=== PATIENT | female | born 1985 | race Caucasian/White ===

== ENCOUNTER 2019-12-26 23:39 | Emergency (ER) | payer MEDICAID ==
[~2019-12-26] VITALS: Ht 162.6 cm; Wt 62.5 kg
[2019-12-27] VITALS: BP 125/88
[2019-12-27] MEDS ORDERED: CLIN300C8 PO (00:21)
--- NOTE | 2019-12-27 00:21 | PHYS DOC ---
General Adult EDM: Chief Complaint: DENTAL PROBLEM HPI: HPI: 34-year-old female who comes in with right upper tooth pain. Says about 3 months ago she had been into something and broke part of the tooth off. Did not visit a dentist since then because it has not really bothered her. About 4 days ago she was picking at it with her tongue nose a little chip came off. States over the past 3 days she has had worsening upper jaw pain. No drainage or fluctuance. Review of Systems: Review of Systems: Constitutional: Denies fever or chills Eyes: Denies change in visual acuity HENT: Denies nasal congestion or sore throat complaining of right upper dental pain Respiratory: Denies cough or shortness of breath Cardiovascular: Denies chest pain or edema GI: Denies abdominal pain, nausea, vomiting, bloody stools or diarrhea : Denies dysuria Musculoskeletal: Denies back pain or joint pain Integument: Denies rash Neurologic: Denies headache, focal weakness or sensory changes Endocrine: Denies polyuria or polydipsia Lymphatic: Denies swollen glands Psychiatric: Denies depression or anxiety Heart Score: Risk Factors: Risk Factors: DM, Current or recent (<one month) smoker, HTN, HLP, family history of CAD, obesity. Risk Scores: Score 0 - 3: 2.5% MACE over next 6 weeks - Discharge Home Score 4 - 6: 20.3% MACE over next 6 weeks - Admit for Clinical Observation Score 7 - 10: 72.7% MACE over next 6 weeks - Early Invasive Strategies Allergies: Allergies: Allergies Coded Allergies Type Severity Reaction Last Updated Verified Penicillins Allergy Unknown 12/27/19 Yes Physical Exam: PE: Constitutional: Well developed, well nourished, no acute distress, non-toxic appearance. [] HENT: Normocephalic, atraumatic, bilateral external ears normal, oropharynx moist, no oral exudates, nose normal. [] Few scattered dental caries, broken right upper molar. Mild erythema of gingiva without fluctuance or drainage Eyes: PERRLA, EOMI, conjunctiva normal, no discharge. [] Neck: Normal range of motion, no tenderness, supple, no stridor. [] Cardiovascular:Heart rate regular rhythm, no murmur [] Lungs & Thorax: Bilateral breath sounds clear to auscultation [] Abdomen: Bowel sounds normal, soft, no tenderness, no masses, no pulsatile masses. [] Skin: Warm, dry, no erythema, no rash. [] Back: No tenderness, no CVA tenderness. [] Extremities: No tenderness, no cyanosis, no clubbing, ROM intact, no edema. [] Neurologic: Alert and oriented X 3, normal motor function, normal sensory function, no focal deficits noted. [] Psychologic: Affect normal, judgement normal, mood normal. [] EKG: EKG: [] Radiology/Procedures: Radiology/Procedures: [] Course & Med Decision Making: Course & Med Decision Making Pertinent Labs and Imaging studies reviewed. (See chart for details) [] Dragon Disclaimer: Dragon Disclaimer: This electronic medical record was generated, in whole or in part, using a voice recognition dictation system. Departure Departure: Impression: Primary Impression: Dental infection Disposition: 01 DC HOME SELF CARE/HOMELESS Condition: STABLE Referrals: PCP,NO (PCP) Additional Instructions: Call someone from dental list provided tomorrow morning Scripts Clindamycin Hcl (CLINDAMYCIN HCL) 300 Mg Capsule 300 MG PO Q6HRS for dental infection for 7 Days, #28 CAP 0 Refills Prov: LACEY GAMBINO MD 12/27/19 LACEY GAMBINO MD Dec 27, 2019 00:21
[2019-12-27] MEDS ORDERED: CLINDAMYCIN HCL 150 MG CAPSULE PO ONE (01:00)
== END 2019-12-27 00:25 | disposition home or self-care (01) ==
LOC: ER 23:39
DX: K04.7 Periapical abscess without sinus (principal); Z88.0 Allergy status to penicillin
CPT/HCPCS: 99283

== ENCOUNTER 2020-03-18 22:14 | Emergency (ER) | payer MEDICAID ==
[~2020-03-18] VITALS: Ht 162.6 cm; Wt 66.3 kg
[~2020-03-18 22:14] MED LIST: CLIN300C9 PO
--- NOTE | 2020-03-18 22:20 | PHYS DOC ---
Past History Past Medical History: No Pertinent History Past Medical History Chronic Dental caries and pain Past Surgical History: Hysterectomy Alcohol Use: Occasionally General Adult HPI: HPI: '.." I ve been here ..before..I went to local dentist..they wanted $600 dollars to pull the tooth..and I could not do the payment plan.....it still hurting.. " Patient is a 34 year old female who presents with above hx and complaints of dental pain. Pt. seen In September and Dec for dental pain. Pt. localizes the pain primarily in teeth #1 and 2.. Tooth 1 is rotted into the gum and fracture. Patient complained of pain in this tooth previously. Patient did not do dental follow-up because payment plan was too steep and overall cost was $600. Patient presents tonight with similar complaints as previous ED visits. Patient does smoke. No recent travel. No specific ill contacts. No history immunosuppression. Review of Systems: Review of Systems: Constitutional: Denies fever or chills Eyes: Denies change in visual acuity HENT: Denies nasal congestion or sore throat. Complaints of dental pain and dental infection Respiratory: Denies cough or shortness of breath Cardiovascular: Denies chest pain or edema GI: Denies abdominal pain, nausea, vomiting, bloody stools or diarrhea : Denies dysuria Musculoskeletal: Denies back pain or joint pain Integument: Denies rash Neurologic: Denies headache, focal weakness or sensory changes Endocrine: Denies polyuria or polydipsia Lymphatic: Denies swollen glands Psychiatric: Denies depression or anxiety Family History: Family History: Noncontributory to presentation Current Medications: Current Meds: See nursing for home meds Allergies: Allergies: Allergies Coded Allergies Type Severity Reaction Last Updated Verified Penicillins Allergy Intermediate 12/27/19 Yes Physical Exam: PE: Constitutional: Moderate acute distress, non-toxic appearance. [] HENT: Normocephalic, atraumatic, bilateral external ears normal, oropharynx moist, no oral exudates, nose normal. Multiple areas of dental decay. Offending area is teeth 1 and 2. 1 is fractured into the gum from decay. There is surrounding gingivitis. No trismus. There is mild adenopathy at angle of mandible . Eyes: PERRLA, EOMI, conjunctiva normal, no discharge. [] Neck: Normal range of motion, no tenderness, supple, no stridor. [] Cardiovascular:Heart rate regular rhythm, no murmur [] Lungs & Thorax: Bilateral breath sounds equal apex with few scattered wheezes auscultation [] Abdomen: Bowel sounds normal, soft, no tenderness, no masses, no pulsatile masses. Old surgery scar Skin: Warm, dry, no erythema, no rash. [] Back: No tenderness, no CVA tenderness. [] Extremities: No tenderness, no cyanosis, no clubbing, ROM intact, no edema. [] Neurologic: Alert and oriented X 3, normal motor function, normal sensory function, no focal deficits noted. [] Psychologic: Affect anxious , judgement normal, mood normal. [] EKG: EKG: [] Radiology/Procedures: Radiology/Procedures: [] Heart Score: Risk Factors: Risk Factors: DM, Current or recent (<one month) smoker, HTN, HLP, family history of CAD, obesity. Risk Scores: Score 0 - 3: 2.5% MACE over next 6 weeks - Discharge Home Score 4 - 6: 20.3% MACE over next 6 weeks - Admit for Clinical Observation Score 7 - 10: 72.7% MACE over next 6 weeks - Early Invasive Strategies Course & Med Decision Making: Course & Med Decision Making Pertinent Labs and Imaging studies reviewed. (See chart for details) Patient to follow-up with oral surgeon. [place] [facility] [place] [facility] [place] [facility] [place] [facility] [place] if unable to obtain a surgeon locally to extract teeth 1 and 2. Patient is started again on clindamycin 300 mg 4 times a day. Patient take Tylenol and ibuprofen for pain. Patient encouraged not to smoke. Patient return if any concerns. Impression: 1. Dental pain 2. Dental caries 3. Gingivitis 4. Dental abscess [] Dragon Disclaimer: Dragon Disclaimer: This electronic medical record was generated, in whole or in part, using a voice recognition dictation system. Departure Departure: Referrals: PCP,NO (PCP) Scripts Clindamycin Hcl (CLINDAMYCIN HCL) 300 Mg Capsule 300 MG PO QIDPRN for dental infection for 14 Days, CAP Prov: CAREY STEPHENS MD 03/18/20 Dragdaniel Disclaimer This chart was dictated in whole or in part using Voice Recognition software in a busy, high-work load, and often noisy Emergency Department environment. It may contain unintended and wholly unrecognized errors or omissions. Dragon Disclaimer This chart was dictated in whole or in part using Voice Recognition software in a busy, high-work load, and often noisy Emergency Department environment. It may contain unintended and wholly unrecognized errors or omissions. CAREY STEPHENS MD Mar 18, 2020 22:20
[2020-03-18 22:28] VITALS: BP 119/80
[2020-03-18] MEDS ORDERED: CLIN300C9 PO (22:59)
[2020-03-18] MEDS ORDERED: KETOROLAC 60 MG/2 ML VIAL. IM ONE (23:30)
[2020-03-18] MEDS ORDERED: CLINDAMYCIN HCL 150 MG CAPSULE PO ONE (23:30)
== END 2020-03-18 23:27 | disposition home or self-care (01) ==
LOC: ER 22:14
DX: K02.9 Dental caries, unspecified (principal); K05.10 Chronic gingivitis, plaque induced; K04.7 Periapical abscess without sinus; Z88.0 Allergy status to penicillin
CPT/HCPCS: 96372; 99283; J1885

== ENCOUNTER 2020-08-01 18:32 | Emergency (ER) | payer MEDICAID, OTHER ==
[~2020-08-01] VITALS: Ht 162.6 cm; Wt 65.8 kg
[2020-08-01] MEDS ORDERED: IV NORMAL SALINE 1,000ML 1,000 ML IV ONE (19:00)
[2020-08-01] MEDS ORDERED: ONDANSETRON PF 4 MG/2 ML VIAL. IVP ONE (19:00)
--- NOTE | 2020-08-01 19:00 | PHYS DOC ---
Past History Past Medical History: Other Additional Past Medical Histor: pyleonephritis; PTSD Past Surgical History: Appendectomy, Cholecystectomy, , Hysterectomy Additional Past Surgical Histo: bariatric surgery Alcohol Use: None General Adult EDM: Chief Complaint: FLANK PAIN HPI: HPI: 34-year-old female presents with right abdominal pain. The patient has been having intermittent pain for last couple of days. It was worse today. She describes it as a cramping sensation in the flank. Moderate in intensity. She is also had a short stabbing pain in the right lower abdomen. She has not had this pain before. Patient does have a history of UTIs including pyelonephritis. No history of kidney stones. She has had her gallbladder, appendix, and uterus removed. Her hysterectomy was due to excessive bleeding and anemia. She believes her ovaries were spared. She denies fever or chills. Review of Systems: Review of Systems: Constitutional: Denies fever or chills Eyes: Denies change in visual acuity HENT: Denies nasal congestion or sore throat Respiratory: Denies cough or shortness of breath Cardiovascular: Denies chest pain or edema GI: Right-sided abdominal pain. denies nausea, vomiting, bloody stools or diarrhea : Dysuria Musculoskeletal: Denies back pain or joint pain Integument: Denies rash Neurologic: Denies headache, focal weakness or sensory changes Endocrine: Denies polyuria or polydipsia Lymphatic: Denies swollen glands Psychiatric: Denies depression or anxiety Allergies: Allergies: Allergies Coded Allergies Type Severity Reaction Last Updated Verified Penicillins Allergy Intermediate 08/01/20 Yes Physical Exam: PE: Constitutional: Well developed, well nourished, no acute distress, non-toxic appearance. [] HENT: Normocephalic, atraumatic, bilateral external ears normal, oropharynx moist, no oral exudates, nose normal. [] Eyes: PERRLA, EOMI, conjunctiva normal, no discharge. [] Neck: Normal range of motion, no tenderness, supple, no stridor. [] Cardiovascular: Heart rate regular rhythm, no murmur [] Lungs & Thorax: Bilateral breath sounds clear to auscultation [] Abdomen: Bowel sounds normal, soft, right-sided abdominal tenderness, no masses, no pulsatile masses. [] Skin: Warm, dry, no erythema, no rash. [] Back: No tenderness, no CVA tenderness. [] Extremities: No tenderness, no cyanosis, no clubbing, ROM intact, no edema. [] Neurologic: Alert and oriented X 3, normal motor function, normal sensory function, no focal deficits noted. [] Psychologic: Affect normal, judgement normal, mood normal. [] Current Patient Data: Vital Signs: Vital Signs Date Time Temp Pulse Resp B/P (MAP) Pulse Ox O2 Delivery O2 Flow Rate FiO2 08/01/20 18:42 98.2 74 18 142/99 (113) 98 Room Air EKG: EKG: [] Radiology/Procedures: Radiology/Procedures: [] Impressions: EXAMINATION: CT ABDOMEN+PELVIS WO (CT ABDOMEN/PELVIS WITHOUT IV CONTRAST) CLINICAL HISTORY: Right lower quadrant pain TECHNIQUE: Non-IV contrast imaging of the abdomen and pelvis was performed using standard technique, scanning from just above the dome of the diaphragm to the symphysis pubis. Unenhanced imaging is limited for the evaluation of some intra-abdominal and pelvic pathology. CT Dose Reduction Employed: One or more of the following individualized dose reduction techniques were utilized for this examination: 1. Automated exposure control 2. Adjustment of the mA and/or kV according to patient size 3. Use of iterative reconstruction technique. COMPARISON: None FINDINGS: Minimal subsegmental atelectasis in the right middle lobe. Cholecystectomy. Findings suggestive of normal variant Devin lobe in the liver. Pancreas, spleen and adrenal glands unremarkable. Asymmetrically small right kidney with a few punctate cortical densities and subcentimeter hypodensity in the upper pole which is too small adequately characterize but likely benign. Minimally filled urinary bladder suboptimally evaluated. Uterus poorly visualiz ed and likely surgically absent. 3.4 cm right adnexal cyst. No dilated bowel. Appendix not definitively visualized on limited evaluation with lack of intravenous and/or oral contrast. Multiple prominent but nonenlarged mesenteric lymph nodes in the right lower quadrant could reflect mesenteric adenitis, but occult appendicitis is not completely excluded. 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 No abdominal aortic or iliac artery aneurysm. No evidence of acute osseous abnormality. IMPRESSION: Appendix not definitively visualized on limited evaluation as described. Multiple prominent but nonenlarged mesenteric lymph nodes in the right lower quadrant, nonspecific and possibly related to mesenteric adenitis but occult appendicitis is not excluded. 3.4 cm right adnexal cyst. Electronically signed by: Ilya Soler DO (08/01/2020 7:41 PM) [facility] DICTATED AND SIGNED BY: ILYA SOLER DO DATE: 08/01/201925 CC: MARIA INES CAMACHO DO; PCP,NO ~MTH0 0 Exam: Ultrasound pelvis Indication: Right adnexal cysts Technique: Real-time grayscale and color Doppler images of the pelvis were obtained by the department furnace erector. Comparisons: CT same day FINDINGS: Uterus is absent. Right ovary measures 4.1 x 4.2 x 3.5 cm. Within the right ovary there is a 3.4 cm hypoechoic heterogenous cystic structure. Left ovary measures 3.9 x 1.9 x 1.8 cm. Vascular flow identified in the ovaries bilaterally. No free fluid identified at the pelvis. IMPRESSION: Findings likely likely related to a hemorrhagic cyst in the right ovary. No evidence for torsion. Electronically signed by: Cayetano Barrow MD (08/01/2020 10:06 PM) [facility] DICTATED AND SIGNED BY: CAYETANO BARROW MD DATE: 08/01/202203 CC: MARIA INES CAMACHO DO; PCP,NO ~MTH0 0 Heart Score: C/O Chest Pain: N/A Risk Factors: Risk Factors: DM, Current or recent (<one month) smoker, HTN, HLP, family history of CAD, obesity. Risk Scores: Score 0 - 3: 2.5% MACE over next 6 weeks - Discharge Home Score 4 - 6: 20.3% MACE over next 6 weeks - Admit for Clinical Observation Score 7 - 10: 72.7% MACE over next 6 weeks - Early Invasive Strategies Course & Med Decision Making: Course & Med Decision Making Pertinent Labs and Imaging studies reviewed. (See chart for details) The patient CT scan shows a right adnexal cyst and some adenitis. I will order an ultrasound to rule out ovarian torsion as she believes she still has her ovaries. Ultrasound shows possible hemorrhagic cyst but no torsion. Patient has urinary tract infection. I will treat her with 750 of levofloxacin in the ED, but discharge her with 5 days of Macrobid. She has had resistance in the past and given her pain I want cover her more broadly with levofloxacin. I do not have high suspicion for pyelonephritis however so I think Macrobid will be sufficient. She is stable for discharge at this time. [] Jacques Disclaimer: Dragdaniel Disclaimer: This electronic medical record was generated, in whole or in part, using a voice recognition dictation system. Departure Departure: Impression: Primary Impression: Urinary tract infection Qualified Codes: N30.01 - Acute cystitis with hematuria Disposition: HOME / SELF CARE / HOMELESS Condition: STABLE Referrals: PCP,NO (PCP) Patient Instructions: Urinary Tract Infection, [id number] Scripts Nitrofurantoin Monohyd/M-Cryst (MACROBID 100 MG CAPSULE) 100 Mg Capsule 1 CAP PO BID for UTI for 5 Days, #10 CAP 0 Refills Prov: MARIA INES CAMACHO DO 08/01/20 MARIA INES CAMACHO DO August 01, 2020 19:00
[2020-08-01 19:44] LABS: BASO % 1 % (0-3); EOS # 0.1 x10^3/uL (0.0-0.7); EOS % 2 % (0-3); HEMATOCRIT 38.2 % (36.0-47.0); HEMOGLOBIN 12.7 g/dL (12.0-15.5); LYMPH # 1.6 x10^3/uL (1.0-4.8); LYMPH % 27 % (24-48); MEAN CORPUSCULAR HEMOGLOBIN 29 pg (25-35); MEAN CORPUSCULAR HGB CONC 33 g/dL (31-37); MEAN CORPUSCULAR VOLUME 88 fL (79-100); MONO # 0.4 x10^3/uL (0.0-1.1); MONO % 6 % (0-9); NEUT # 3.7 x10^3uL (1.8-7.7); NEUT % 64 % (31-73); PLATELET COUNT 275 x10^3/uL (140-400); RED BLOOD COUNT 4.35 x10^6/uL (3.50-5.40); RED CELL DISTRIBUTION WIDTH 13.3 % (11.5-14.5); WHITE BLOOD COUNT 5.8 x10^3/uL (4.0-11.0)
--- NOTE | 2020-08-01 19:44 | RAD ---
EXAMINATION: CT ABDOMEN+PELVIS WO (CT ABDOMEN/PELVIS WITHOUT IV CONTRAST) CLINICAL HISTORY: Right lower quadrant pain TECHNIQUE: Non-IV contrast imaging of the abdomen and pelvis was performed using standard technique, scanning from just above the dome of the diaphragm to the symphysis pubis. Unenhanced imaging is gaona ited for the evaluation of some intra-abdominal and pelvic pathology. CT Dose Reduction Employed: One or more of the following individualized dose reduction techniques wer e utilized for this examination: 1. Automated exposure control 2. Adjustment of the mA and/or kV ac cording to patient size 3. Use of iterative reconstruction technique. COMPARISON: None FINDINGS: Minimal subsegmental atelectasis in the right middle lobe. Cholecystectomy. Findings suggestive of normal variant Devin lobe in the liver. Pancreas, spleen and adrenal glands unremarkable. Asymmetrically small right kidney with a few punctate cortical densities and subcentimeter hypodensit y in the upper pole which is too small adequately characterize but likely benign. Minimally filled urinary bladder suboptimally evaluated. Uterus poorly visualized and likely surgical ly absent. 3.4 cm right adnexal cyst. No dilated bowel. Appendix not definitively visualized on limited evaluation with lack of intravenous and/or oral contrast. Multiple prominent but nonenlarged mesenteric lymph nodes in the right lower q uadrant could reflect mesenteric adenitis, but occult appendicitis is not completely excluded. Postop erative changes related to sleeve gastrectomy. No abdominal aortic or iliac artery aneurysm. No evidence of acute osseous abnormality. IMPRESSION: Appendix not definitively visualized on limited evaluation as described. Multiple prominent but nonenlarged mesenteric lymph nodes in the right lower quadrant, nonspecific an d possibly related to mesenteric adenitis but occult appendicitis is not excluded. 3.4 cm right adnexal cyst. Electronically signed by: Ilya Cavanaugh DO (08/01/2020 7:41 PM) [facility]
[2020-08-01 19:47] LABS: CALCIUM 8.3 mg/dL (8.5-10.1); CREATININE 0.7 mg/dL (0.6-1.0); POTASSIUM 3.6 mmol/L (3.5-5.1)
[2020-08-01 19:53] LABS: COLOR,URINE YELLOW
[2020-08-01 19:54] LABS: BACTERIA,URINE MANY /HPF (0-FEW); BILIRUBIN,URINE NEG (NEG); CLARITY,URINE CLOUDY; GLUCOSE,URINE NEG (NEG); NITRITE,URINE POS (NEG); RBC,URINE 0 /HPF (0-2); SQUAMOUS EPITHELIAL CELL,UR MOD /LPF; UROBILINOGEN,URINE 0.2 mg/dL (0.2 mg/dL); WBC,URINE 20-40 /HPF (0-4)
[2020-08-01 19:54] LABS: ALBUMIN 3.5 g/dL (3.4-5.0); ALBUMIN/GLOBULIN RATIO 1.1 (1.0-1.7); TOTAL BILIRUBIN 0.4 mg/dL (0.2-1.0); TOTAL PROTEIN 6.7 g/dL (6.4-8.2)
[2020-08-01] MEDS ORDERED: levoFLOXacin 250 MG TABLET PO ONE (21:30)
--- NOTE | 2020-08-01 22:08 | RAD ---
Exam: Ultrasound pelvis Indication: Right adnexal cysts Technique: Real-time grayscale and color Doppler images of the pelvis were obtained by the department select banker. Comparisons: CT same day FINDINGS: Uterus is absent. Right ovary measures 4.1 x 4.2 x 3.5 cm. Within the right ovary there is a 3.4 cm hypoechoic heteroge nous cystic structure. Left ovary measures 3.9 x 1.9 x 1.8 cm. Vascular flow identified in the ovaries bilaterally. No free fluid identified at the pelvis. IMPRESSION: Findings likely likely related to a hemorrhagic cyst in the right ovary. No evidence for torsion. Electronically signed by: Cayetano Shelton MD (08/01/2020 10:06 PM) [facility]
[2020-08-01] MEDS ORDERED: NITR100C62 PO (22:13)
[2020-08-01 22:20] VITALS: BP 132/63
== END 2020-08-01 22:20 | disposition home or self-care (01) ==
LOC: ER 18:32
DX: N39.0 Urinary tract infection, site not specified (principal); Z90.49 Acquired absence of other specified parts of digestive tract; Z88.0 Allergy status to penicillin; Z90.710 Acquired absence of both cervix and uterus
CPT/HCPCS: 36415; 74176; 76830; 76856; 80053; 81001; 85025; 87086; 96360; 99285; J7030

== ENCOUNTER 2021-06-30 19:15 | Emergency (ER) | payer OTHER ==
[~2021-06-30] VITALS: Ht 162.6 cm; Wt 68.6 kg
[~2021-06-30 19:15] MED LIST changes: +CLIN-95 PO; -CLIN300C9 PO; +NITR100C62 PO
[2021-06-30 19:25] VITALS: BP 132/89
[2021-06-30 20:11] LABS: U PREG PATIENT NEGATIVE (NEG)
[2021-06-30] MEDS ORDERED: ACETAMINOPHEN/CODEINE 120/12MG 5 ML SOLUTION. PO ONE (20:15)
[2021-06-30] MEDS ORDERED: HYDROcodone/APAP 5/325MG 1 TAB TABLET PO ONE (20:15)
[2021-06-30 20:16] LABS: CLARITY,URINE CLEAR; COLOR,URINE YELLOW; GLUCOSE,URINE NEG (NEG)
[2021-06-30 20:17] LABS: BACTERIA,URINE 0 /HPF (0-FEW); NITRITE,URINE NEG (NEG); RBC,URINE 0 /HPF (0-2); SQUAMOUS EPITHELIAL CELL,UR FEW /LPF; UROBILINOGEN,URINE 0.2 mg/dL (0.2 mg/dL); WBC,URINE 0 /HPF (0-4)
--- NOTE | 2021-06-30 20:37 | PHYS DOC ---
Past History Past Medical History: Other Additional Past Medical Histor: pyleonephritis; PTSD (DINESH GRANT APRN) Past Surgical History: Appendectomy, Cholecystectomy, , Hysterectomy Additional Past Surgical Histo: bariatric surgery (DINESH GRANT APRN) Additional Smoking Information: VAPES Alcohol Use: Occasionally (DINESH GRANT APRN) General Adult EDM: Chief Complaint: FLANK PAIN HPI: HPI: Patient is a 35-year-old female who presents with flank pain and pain with urination. Patient states symptoms started about 2 weeks ago. Patient's been taking cranberry pills at home to help with symptoms along with drinking lemon water. Denies abnormal discharge or vaginal odor. Afebrile. Denies other medical history. (DINESH GRANT APRN) Review of Systems: Review of Systems: ROS At least 10 ROS systems have been reviewed and are negative except as documented in the HPI. General: Negative except as outlined in HPI above. Skin: Negative except as outlined in HPI above. HEENT: Negative except as outlined in HPI above. Neck: Negative except as outlined in HPI above. Respiratory: Negative except as outlined in HPI above.. Cardiovascular: Negative except as outlined in HPI above. Abdomen: Negative except as outlined in HPI above. : Negative except as outlined in HPI above. Back/MSK: Negative except as outlined in HPI above. Neuro: Negative except as outlined in HPI above. Psych: Negative except as outlined in HPI above. (DINESH GRANT APRN) Current Medications: Current Meds: Current Medications Medications (Trade) Dose Ordered Sig/Geronimo Start Time Stop Time Status Last Admin Dose Admin Acetaminophen/ Codeine Phosphate (Tylenol/Codeine Soln) 5 ml 1X ONCE 06/30/21 20:15 06/30/21 20:14 DC Acetaminophen/ Hydrocodone Bitart (Lortab 5/325) 1 tab 1X ONCE 06/30/21 20:15 06/30/21 20:16 UNV (DINESH GRANT APRN) Allergies: Allergies: Allergies Coded Allergies Type Severity Reaction Last Updated Verified Penicillins Allergy Intermediate 08/01/20 Yes (DINESH GRANT APRN) Physical Exam: PE: Constitutional: Well developed, well nourished, no acute distress, non-toxic appearance. [] HENT: Normocephalic, bilateral external ears normal, oropharynx moist, no oral exudates, nose normal. [] Eyes: PERRLA, conjunctiva normal, no discharge. [] Neck: Normal range of motion, no tenderness, supple, no stridor. [] Cardiovascular:Heart rate regular rhythm, no murmur [] Lungs & Thorax: Bilateral breath sounds clear to auscultation [] Abdomen: Bowel sounds normal, soft, no tenderness, no masses, no pulsatile masses. [] Skin: Warm, dry, no erythema, no rash. [] Back: No tenderness, no CVA tenderness. [] Extremities: No tenderness, no cyanosis, no clubbing, ROM intact, no edema. [] Neurologic: Alert and oriented X 3, normal motor function, normal sensory function, no focal deficits noted. [] Psychologic: Affect normal, judgement normal, mood normal. [] (DINESH GRANT APRN) Current Patient Data: Labs: Laboratory Tests Test 06/30/21 18:46 06/30/21 19:35 POC Urine HCG, Qualitative hcg negative (Negative) Urine Collection Type Clean catch Urine Color Yellow Urine Clarity Clear Urine pH 7.0 Urine Specific Normanna 1.025 Urine Protein Neg (NEG-TRACE) Urine Glucose (UA) Neg mg/dL (NEG) Urine Ketones (Stick) Neg mg/dL (NEG) Urine Blood Neg (NEG) Urine Nitrite Neg (NEG) Urine Bilirubin Neg (NEG) Urine Urobilinogen Dipstick 0.2 mg/dL (0.2 mg/dL) Urine Leukocyte Esterase Neg (NEG) Urine RBC 0 /HPF (0-2) Urine WBC 0 /HPF (0-4) Urine Squamous Epithelial Cells Few /LPF Urine Bacteria 0 /HPF (0-FEW) Urine Test Negative (NEG) Vital Signs: Vital Signs Date Time Temp Pulse Resp B/P (MAP) Pulse Ox O2 Delivery O2 Flow Rate FiO2 06/30/21 19:25 97.8 94 20 132/89 (103) 100 Room Air (DINESH GRANT APRN) EKG: EKG: [] (DINESH GRANT APRN) Radiology/Procedures: Radiology/Procedures: [] (DNIESH GRANT APRN) Heart Score: C/O Chest Pain: No Risk Factors: Risk Factors: DM, Current or recent (<one month) smoker, HTN, HLP, family history of CAD, obesity. Risk Scores: Score 0 - 3: 2.5% MACE over next 6 weeks - Discharge Home Score 4 - 6: 20.3% MACE over next 6 weeks - Admit for Clinical Observation Score 7 - 10: 72.7% MACE over next 6 weeks - Early Invasive Strategies (DINESH GRANT APRN) Course & Med Decision Making: Course & Med Decision Making Pertinent Labs and Imaging studies reviewed. (See chart for details) [] 35-year-old female presents with flank pain and pain with urination. UA was negative for infection or blood. Discussed results with patient. Advised patient to increase fluids. Patient given Pyridium. Patient refused Pyridium and Toradol. Patient acted upset that we did not have a exact reason for her flank pain. Offered patient fluids and to draw basic l abs. Patient refused. Discussed return precautions and at home treatments. Patient is hemodynamically stable upon disposition. (DINESH GRANT APRN) Dragon Disclaimer: Dragon Disclaimer: This electronic medical record was generated, in whole or in part, using a voice recognition dictation system. (DINESH GRANT APRN) Departure Departure: Impression: Primary Impression: Dysuria Disposition: HOME / SELF CARE / HOMELESS Condition: STABLE Referrals: PCP,JENNIFER (PCP) Patient Instructions: Dysuria Additional Instructions: You are seen in the emergency room for pain with urination and flank pain. Your urine was negative for infection and blood. Make sure you are increasing your fluids. You can take ibuprofen and Tylenol at home for discomfort. Follow-up with your PCP if symptoms do not improve. Turn to emergency room for worsening symptoms or concerns. EMERGENCY DEPARTMENT GENERAL DISCHARGE INSTRUCTIONS Thank you for coming to [facility] (ED) today and trusting us with you care. We trust that you had a positivie experience in our Emergency Department. If you wish to speak to the department management, you may call the director at [phone]. YOUR FOLLOW UP INSTRUCTIONS ARE FOLLOWS: 1. Do you have a private Doctor? If you do not have a private doctor, please ask for a resource list of physicians or clinics that may be able to assist you with follow up care. 2. The Emergency Physician has interpreted your x-rays. The X-Ray specialist will also review them. If there is a change in the findings, you will be notified in 48 hours when at all possible. 3. A lab test or culture has been done, your results will be reviewed and you will be notified if you need a change in treatment. ADDITIONAL INSTRUCTIONS AND INFORMATION: 1. Your care today has been supervised by a physician who is specially trained in emergency care. Many problems require more than one evaluation for a complete diagnosis and treatment. We recommend that you schedule your follow up appointment as recommended to ensure complete treatment of you illness or injury. If you are unable to obtain follow up care and continue to have a problem, or if your condition worsens, we recommend that you return to the ED. 2. We are not able to safely determine your condition over the phone nor are we able to give sound medical advice over the phone. For these safety reasons, if you call for medical advice we will ask you to come to the ED for further evaluation. 3. If you have any questions regarding these discharge instructions please call the ED at [phone]. SAFETY INFORMATION: In the interest of safety, wellness, and injury prevention; we encourage you to wear your sealbelt, if you smoke; quite smoking, and we encourage family to use a protective helmet for bicycling and other sporting events that present an increased risk for head injury. IF YOUR SYMPTOMS WORSEN OR NEW SYMPTOMS DEVELOP, OR YOU HAVE CONCERNS ABOUT YOUR CONDITION; OR IF YOUR CONDITION WORSENS WHILE YOU ARE WAITING FOR YOUR FOLLOW UP APPOINTMENT; EITHER CONTACT YOUR PRIMARY CARE DOCTOR, THE PHYSICIAN WHOSE NAME AND NUMBER YOU WERE GIVEN, OR RETURN TO THE ED IMMEDIATELY. Dragon Disclaimer This chart was dictated in whole or in part using Voice Recognition software in a busy, high-work load, and often noisy Emergency Department environment. It may contain unintended and wholly unrecognized errors or omissions. (CAREY STEPHENS MD) Attending Signature Attending Signature I have participated in the care of this patient and I have reviewed and agree with all pertinent clinical information above including history, exam, and recommendations. (CAREY STEPHENS MD) DINESH GRANT CHANGE MANAGEMENT FACILITATOR Jun 30, 2021 20:37 CAREY STEPHENS MD Jul 02, 2021 07:18
[2021-06-30] MEDS ORDERED: PHENAZOPYRIDINE 200 MG TABLET. PO ONE (20:45)
== END 2021-06-30 20:55 | disposition home or self-care (01) ==
LOC: ER 19:15
DX: R30.0 Dysuria (principal); R10.9 Unspecified abdominal pain; F17.200 Nicotine dependence, unspecified, uncomplicated; Z90.89 Acquired absence of other organs; Z90.49 Acquired absence of other specified parts of digestive tract; Z98.890 Other specified postprocedural states; Z90.710 Acquired absence of both cervix and uterus; Z88.0 Allergy status to penicillin
CPT/HCPCS: 81001; 81025; 99283